=== PATIENT | female | born 1960 | race Caucasian/White ===

== ENCOUNTER → 2019-12-28 10:49 | Outpatient (CLI) | payer OTHER, SELFPAY ==
[2019-12-29 12:24] LABS: COVID19 Sendout Not Detected (Not Detect)
== END ==
PROVIDERS: PCP Obstetrics & Gynecology; Visit Provider Physician Assistant
DX: Z11.59 Encounter for screening for other viral diseases (principal)
CPT/HCPCS: 87635

== ENCOUNTER 2019-12-31 06:32 | Day surgery (SDC) | payer OTHER, SELFPAY ==
[2019-12-29 09:36] VITALS: BMI 25.0
[2019-12-31] VITALS (15 sets, daily range): BP systolic 103–135; BP diastolic 60–81; PULSE 46–95; RESP 8–18; TEMP 36.1–37.7; O2SAT 94–99; BMI 25.0
--- NOTE | 2019-12-31 | PATH_ITS ---
[facility] Accession Number: [id number] . 01 Material submitted: . uterus - UTERUS, CERVIX, BILATERAL FALLOPIAN TUBES AND OVARIES . 01 Clinical history: . OPB . 01 Diagnosis: A. Uterus, Cervix, Bilateral Fallopian Tubes and Ovaries, Hysterectomy and Bilateral Salpingo-oophorectomy: Cervix with parakeratosis, orthokeratosis, and mild keratinocytic atypia, consistent with prolapse-type changes; see comment. Negative for definite squamous dysplasia, glandular dysplasia, and invasive malignancy. Weakly proliferative endometrium with focal polyp features. Negative for atypia, hyperplasia, and malignancy. Bilateral ovaries with focal benign simple epithelial-lined cyst. Negative for borderline tumor and malignancy. Paratubal/paraovarian tissue with small benign cyst. See comment. [facility] 01/04/2020 1801 Local . 01 Comment: Within the cervix, mild keratinocytic atypia is present and is favored to represent prolapse-type changes; however, although less favored, low-grade squamous intraepithelial lesion/HPV cytopathic effect cannot be entirely excluded. Clinical correlation with gynecologic/Pap smear history is necessary to exclude this possibility. . Fallopian tube proper is not identified. These findings were communicated to Dr. Arrieta on 01/04/2020 at 2:30 p.m. . 01 Electronically signed: . Reina Watkins MD, Pathologist NPI- [id number] . 01 Gross description: . Received in formalin, labeled uterus, cervix, bilateral fallopian tubes and ovaries, and consists of a 48-gram uterus and cervix measuring 7.2 cm from superior fundus to cervix by 3.0 cm from cornu to cornu by 2.2 cm from anterior to posterior. The eldridge-pink wrinkled ectocervix measuring 4.5 x 3.0 cm and there is a 1.5 x 0.1 cm slit-like probe patent os. The serosa is eldridge-pink and smooth. The specimen is bivalved to reveal a eldridge-pink herringbone endocervical mucosa. The endometrial cavity measures 2.5 x 1.5 cm and displays a eldridge-pink hemorrhagic glistening endometrium measuring 0.1 cm in thickness. The myometrium is eldridge-pink and trabeculated measuring 1.2 cm in thickness. The detached ovaries weigh 3 grams (2.5 x 1.6 x 1.0 cm) and 3 grams (2.5 x 1.4 x 1.0 cm). The external surfaces are eldridge and cerebriform, and the smaller ovary has multiple cysts ranging from 0.1 to 1.0 cm. No papillary excrescences are identified. The remaining ovarian stroma is eldridge-pink with multiple corpora albicantia. Fallopian tubes are not identified within the specimen container or attached to the specimen. Flight Engineer Instructor sections are submitted. . A1: anterior cervix. A2: posterior cervix. A3: anterior uterus, full-thickness sections. A4: posterior uterus, full-thickness sections. A5: residential sales representative smaller cystic ovary. A6: residential sales representative larger ovary. A7: soft tissue attached to larger ovary. ([id number]) /MRV 01/01/2020 1432 [facility] . 01 Pathologist provided ICD-10: N81.3, N81.10, N81.6 . 01 CPT . 071097 Performed at: [address], [place], [place] [id number] MD Tip Valerio MD Phone: [phone]
--- NOTE | 2019-12-31 09:21 | PM.PREOP ---
Pre-operative Note COVID-19 COVID-19 status: Negative Result date/Date tested (Pos, Neg/Pending): 12/28/19 Interval Note History & Physical reviewed/Exam performed by Physician: Yes Changes to H&P: No H&P completed within 30 days and has changed as indicated here:: 12/28/19
[2019-12-31] MEDS: CEFAZOLIN 2 GM/100 ML FROZ.PIGGY IV (10:00)
[2019-12-31] MEDS: BUPIVACAINE 0.5% W/ EPI (PF) 30 ML VIAL INJ (11:15)
[2019-12-31] MEDS: LACTATED RINGERS 1,000 ML 42 ML IV (11:16)
[2019-12-31] MEDS: fentaNYL 100 MCG/2 ML INJ IV (12:24)
[2019-12-31] MEDS: ONDANSETRON 4 MG/2 ML INJ IV ×2 (12:24→18:04)
--- NOTE | 2019-12-31 12:28 | P.OP_ITS ---
Operative Date/Time/Diagnoses Date of procedure: 12/31/19 Time of procedure: 12:29 Pre-op diagnosis: Uterine prolapse Cystocele Rectocele Post-op diagnosis: same Procedure & Clinicians Procedure: Procedures Operation Date: 12/31/19 07:45 Actual Procedures Side Surgeon p Total Vaginal Hysterectomy, bilateral salpingo-oophorectomy, , anterior/posterior repair, Not Applicable Sachi Arrieta MD Indications: Uterine prolapse Cystocele Rectocele Surgeon: Sachi Arrieta Group Exercise Class Instructor: Maria Isabel Cobos Anesthesia Type: Spinal (With sedation) Operative Notes Closure Type: primary Specimen(s): left tube & ovary, right tube & ovary and uterus Applied: catheter (To continuous drainage) Estimated blood loss (mL): 25 Blood products transfused: none Procedure in detail: The patient was taken to the operating room where she was placed in the dorsal supine position. After adequate general endotracheal anesthesia was achieved, she was placed in the dorsal lithotomy position, and prepped and draped in the usual sterile fashion. a weighted speculum was placed into the vagina. The cervix was grasped with a 4 tooth tenaculum. 10 mL of quarter percent Marcaine with epinephrine were injected circumferentially around the cervix. The cervix was circumscribed. The bladder and rectum were dissected off the lower uterine segment and cervix with an open moistened Ray- Giorgio. The peritoneum was entered sharply with the Metzenbaum scissors anteriorly and a [place] placed. The peritoneum was entered posteriorly with the Metzenbaum scissors and the long weighted speculum was placed into the posterior cul-de-sac. The uterosacral cardinal ligament complexes were clamped, transected, and suture ligated with 0 Vicryl. These were attached to hemostat. The uterine arteries were clamped, transected, and suture ligated with 0 Vicryl. The uterus was handed off for specimen with the tubes and ovaries. The peritoneum was closed with a pursestring suture with 2-0 Vicryl. The vaginal cuff was closed with 0 Vicryl with a series of simple interrupted sutures. The tagged sutures were cut. 2 Allis clamps were placed at the apex of the cystocele. 6 mL of half percent Marcaine with epinephrine were injected and an incision was made with a #10 blade between the 2 Allis clamps. Wide Allis clamps were placed on the midline of the cystocele approximately 6. The mucosa was undermined using the Metzenbaum scissors and the mucosa incised in the midline moving the wide Allis clamps to the edges of the mucosa. The mucosa was dissected off the underlying fascia using an open moistened Ray-Giorgio and a #10 blade. The fascia was reapproximated with 0 Vicryl with a series of horizontal mattress sutures. The excess vaginal mucosa was excised. The mucosa was closed using simple interrupted sutures with 2-0 Vicryl including the underlying fascia to close the space. The weighted speculum was removed from the vagina. Allis clamps were placed at the mucocutaneous junction at the introitus. 6 mL of half percent Marcaine with epinephrine were injected. An incision was made with a #10 blade between the 2 Allis clamps, and a triangular piece of skin and underlying subcutaneous tissue was removed. Allis clamps were placed in the mid line of the rectocele. 10 mL of half percent Marcaine with epinephrine were injected submucosally. The mucosa was undermined using the Metzenbaum scissors and the mucosa incised in the midline, moving the wide Allis clamps to the mucosal edges. The underlying fascia was dissected off of th mucosa using an open moistened Ray-Giorgio and a #10 blade. The fascia was reapproximated using 0 Vicryl with a series of horizontal mattress sutures. The excess vaginal mucosa was excised. The mucosa was closed using a series of simple interrupted sutures with 2-0 Vicryl including the underlying fascia to close the space. On the perineum 0 Vicryl was used to reapproximate the levator muscle. The subcutaneous layer was closed with 2-0 Vicryl. The skin was closed with 3-0 chromic in a subcuticular fashion. Hemostasis was achieved. A Betadine moistened vaginal pack was placed into the vagina. A rectal exam was done and there were no sutures palpable in the rectum. The urine was clear. Sponge, lap, and instrument counts were correct x-2. The patient tolerated the procedure well, was taken to PACU in stable condition. Complications: none Post-operative Condition: stable Disposition: PACU Plan for aftercare: To acute care after recovery
[2019-12-31] MEDS: KETOROLAC 30 MG/ML VIAL IV ×3 (12:33→23:42)
--- NOTE | 2019-12-31 12:53 | SUR.PHASEI ---
Patient's' vitals stable, but has a heart rate in mid 40's to low 60's. Notified Dr. Cruz who stated that patient may transfer to acute care. Patient assymptomatic, resting peacefully in bed and conversing well.
[2019-12-31] MEDS: HYDROMORPHONE 1 MG INJ IV ×2 (13:41→20:46)
[2019-12-31] MEDS: LACTATED RINGERS 1,000 ML 100 ML IV ×2 (13:44→18:45)
--- NOTE | 2019-12-31 13:47 | PC.NURSE ---
Addendum entered by Zakia Mendoza R.N. 12/31/19 14:31: Patient sleeping on and off, reports cramping has improved since medicated with IVP Dilaudid. Original Note: Patient alert, oriented rates abdominal pain 6/10 and cramping. Denies nausea. Given 1mg Dilaudid IVP. Patient oriented to room and call light.
[2019-12-31] MEDS: NICOTINE 14 PATCH 14 MG TOP (18:35)
[2019-12-31] MEDS: GABAPENTIN 600 MG TABLET PO (20:34)
[2019-12-31] MEDS: DOCUSATE 250 MG CAPSULE PO (20:34)
[2019-12-31] MEDS: METFORMIN HCL 500 MG TABLET PO (20:34)
[2019-12-31] MEDS: PHENAZOPYRIDINE 100 MG TABLET 200 MG PO (20:35)
[2020-01-01 04:42] VITALS: BP 125/82; PULSE 80; RESP 18; TEMP 37.2; O2SAT 96
[2020-01-01] MEDS: LACTATED RINGERS 1,000 ML 100 ML IV (05:07)
[2020-01-01 05:34] LABS: Add Manual Diff / Slide Review NO; Basophils Absolute Auto 0 /uL (0-100); Basophils Percent Auto 0.4 % (0-2); Eosinophils Absolute Auto 100 /uL (0-450); Eosinophils Percent Auto 1.2 % (2-4); Hematocrit 32.2 % (36-46); Hemoglobin 10.8 g/dL (12.0-16.0); Lymphocytes Absolute Auto 1600 /uL (1100-4500); Lymphocytes Percent Auto 16.3 % (25-40); Mean Corpuscular HGB Conc 33.6 % (30-36); Mean Corpuscular Hemoglobin 29.2 PG (26-34); Mean Corpuscular Volume 86.9 fL (80-100); Monocytes Absolute Auto 500 /uL (0-900); Monocytes Percent Auto 5.6 % (3-14); Neutrophils Absolute Auto 7500 /uL (1500-7000); Neutrophils Percent Auto 76.5 % (50-75); Platelet Count 164 X10^3/uL (150-400); Red Cell Distribution Width 13.6 % (11.6-14.8); White Blood Cell Count 9.8 X10^3/uL (4.5-11.0)
[2020-01-01] MEDS: KETOROLAC 30 MG/ML VIAL IV (05:37)
[2020-01-01] MEDS: OXYCODONE/ACETAMINOPHEN 5/325 TABLET 1 TAB PO ×2 (05:38→09:37)
--- NOTE | 2020-01-01 06:32 | PC.NURSE ---
0600 Vaginal packing pulled out & cunningham catheter discontinued. Tolerated procedure, medicated with 1 tab. Percocet & scheduled 30 mg. of Toradol IVP. Cunningham drained 1200cc of dark orange yellow urine. Did not sleep well last night, report I slept all day yesterday. Will continue POC & monitor.
--- NOTE | 2020-01-01 07:26 | PC.NURSE ---
Voided 400 cc & checked PVR 91 cc noted, reported to day RN.
[2020-01-01 08:00] VITALS: BP 123/81; PULSE 81; RESP 18; TEMP 36.9; O2SAT 95
[2020-01-01] MEDS: PHENAZOPYRIDINE 100 MG TABLET 200 MG PO ×2 (08:29→09:37)
[2020-01-01] MEDS: GABAPENTIN 600 MG TABLET PO (08:30)
[2020-01-01] MEDS: METFORMIN HCL 500 MG TABLET PO (08:30)
[2020-01-01] MEDS: DOCUSATE 250 MG CAPSULE PO (08:30)
--- NOTE | 2020-01-01 10:00 | PC.NURSE ---
Day SHift- Spoke with Dr. Arrieta in person and via phone. Pt may take 600mg Ibuprofen and stagger Tylenol or Percocet at the 3 hour verito inbetween Tylenol doses. Pt aware. Also pt to stop Aspirin for 1 week and stop Estraidol. Pt aware to not place anything vaginally. Medication list reviewed. Instructed pt she may also cut the Percocet in half if needed and to keep track of her pain medications. Pt aware of follow up appointment, states has all belongings. Extra mesh pants and pads given. Pt has had small amount of drainage on jacqui pad this morning. Voided 3 times, last void, no blood visualized in toilet. Discharge instructions reviewed with pt and her Cristhian at bedside. No further voiced concerns. Pt left unit at 1000 in no distress via wheelchair with NATURAL GAS TECHNICIAN assist. Cristhian present to drive pt home and aware of prescriptions sent electronically.
--- NOTE | 2020-01-01 12:40 | CM.DANOTE ---
Discharge Planning/Care Management DCP: asssessment: case received and discussed in Team Rounds. Pt is a 59 year old female who admitted yesterday for a planned gynecological procedure: surgeon: Dr. Arrieta. Payer: [employer]inc[employer]. RN coordinator Zakia noted in Rounds that pt had been given ok for d/c early this morning and she left for home with her spouse just as Rounds was starting. Clinic followup planned. CM Discharge Assessment Start: 01/01/20 12:39 Freq: Status: Active Protocol: Document 01/01/20 12:40 ITV (Rec: 01/01/20 12:40 ITV [id number]) Discharge Planning Assessment Advance Directives? No History Provided By Medical Record Prior Living Arrangements House Household Members spouse Review Status In Process Pre-Anesthesia Assessment Start: 12/29/19 09:36 Freq: Status: Complete Protocol: Document 12/29/19 09:36 CAB (Rec: 12/29/19 09:48 CAB [id number]) Pre-Anesthesia Assessment Patient Information Reviewed Via Chart Review Diagnostic Results EKG Comment Outside EKG scanned to record, COVID screen @ 12/28/19 Pending Primary Care Provider rebecca Specialist Seen Garden Center Manager Primary Language Czech Extra Gang Supervisor Required No Height 165.1 cm Weight 68.039 kg Body Mass Index (BMI) 25.0 Barriers to Learning None Other Aids No Anesthesia Review Requested No Steam Train Driver No Smoking Status Current every day smoker History of Falling (Recent or History of No ) Patient is completely paralyzed or No completely immobile Mental Status Oriented to own ability Hx Sleep Apnea No Currently Taking a Beta Kee No Cardiac Testing No Hx Pacemaker/ICD No Pacemaker Rep Required? No Bladder Pattern Incontinent, Stress,Urgency Urinary Catheter Present No Hx Urinary Self Catheterization No Diabetes Yes Patient No Lactating No Have you had any close contact with Unknown someone diagnosed with COVID-19? Marital Status Lives With spouse Patient Discharge Plan Description Return Home
--- NOTE | 2020-01-01 12:53 | P.DS_ITS ---
History of Present Illness History of Present Illness Date Patient Seen: 01/01/20 Time Patient Seen: 07:45 Chief complaint: OPB Narrative: Patient is a 59-year-old 3 para 2 who was admitted on December 31, 2019 for a scheduled LAVH/BSO/anterior and posterior repair. She underwent these procedures without complication. On the morning of January 01, 2020 her Quigley catheter was removed as well as vaginal packing. She was able to void 400 cc with a 90 cc residual the 1st time. She voided 250 cc of 2nd time with a less than 50 cc residual. Pain is well controlled. No significant vaginal bleeding. Patient is ambulating. She is tolerating a diet. Discharge Providers Provider Discharge Date: 01/01/20 Primary care physician: Sachi Arrieta MD Consults: 12/31/19 08:19 Consult to Respiratory Therapy Evaluate & Treat Comment: Physician Instructions: Evaluate and treat Discharge provider: Sachi Arrieta MD Summary Hospital Course Discharge Diagnosis: Uterine prolapse Cystocele Rectocele Status post LAVH/BSO/anterior and posterior repair Hospital Course: Patient was admitted on December 31, 2019 for a scheduled LAVH/BSO/anterior and posterior repair. She underwent this procedure without complication. Her Quilgey catheter was removed on postop day # 1 as well as the vaginal packing. She was able to void without any significant postvoid resid uals. She is tolerating a diet. Her pain is well controlled. She is ambulating without assistance. Status at Discharge Cognitive/behavioral status at discharge: oriented Functional status at discharge: independent ambulation Overall status at discharge: patient is progressing back to baseline Time Spent with Patient Time spent: Less than 30 minutes Time spent discussing smoking cessation with patient: 3 to 10 minutes Exam Vital Signs (past 8 hours): - 01/01/20 08:00 Temperature 98.5 F Pulse Rate 81 Respiratory Rate 18 Blood Pressure 123/81 Pulse Oximetry 95 Oxygen Delivery Method Room Air Oxygen Flow Rate 0 Narrative Exam Narrative: Generally: Patient is sitting up in bed, no acute distress Lungs: Clear to auscultation bilaterally Cardiovascular: Regular rate and rhythm Abdomen: Soft and flat. Good bowel sounds Perineum: Small amount of old blood Extremities: Negative Homans, no edema Objective Labs Result Diagrams: 01/01/20 05:13 Labs: Laboratory Results - last 24 hr 01/01/20 05:13 WBC 9.8 RBC 3.70 L Hgb 10.8 L Hct 32.2 L MCV 86.9 MCH 29.2 MCHC 33.6 RDW 13.6 Plt Count 164 Neut % (Auto) 76.5 H Lymph % (Auto) 16.3 L [place] % (Auto) 5.6 Eos % (Auto) 1.2 L Baso % (Auto) 0.4 Neut # (Auto) 7500 H Lymph # (Auto) 1600 [place] # (Auto) 500 Eos # (Auto) 100 Baso # (Auto) 0 Discharge Assessment & Plan Assessment and Plan Assessment: Assessment: 59-year-old 3 para 2 postop day # 1 status post LAVH/BSO/anterior and posterior repair Patient doing very well Voiding without significant postvoid residuals Plan of Treatment: Plan: Discharge to home Follow-up in 2 weeks for tele health visit Prescription for Colace and Percocet sent in Patient to call with fever, chills, or bleeding vaginally more than spotting to light Discharge Plan Discharge Plan Patient Disposition: Home Discharge comment: Call with fever, chills, or bleeding vaginally more than spotting to light Ibuprofen 600 mg every 6 hours Tylenol 650 mg every 6 hours or Percocet, both contain acetaminophen so do not want to use them together Stool softeners twice a day Discharge Med Rec/Prescriptions Prescriptions: New docusate sodium [Colace] 100 mg capsule 100 mg PO BID Qty: 30 RF: 2 oxycodone-acetaminophen [Percocet] 5-325 mg tablet 1 tab PO Q4-6H PRN (Reason: pain) Qty: 20 RF: 0 Continued metformin 500 mg/5 mL solution 500 mg PO BID RF: 0 gabapentin 600 mg tablet 600 mg PO TID RF: 0 simvastatin 40 mg tablet 40 mg PO DAILY RF: 0 zolpidem 10 mg tablet 10 mg PO BEDTIME PRN (Reason: insomnia) Qty: 10 RF: 0 Multivitamin 50 Plus Tablet 1 tab PO DAILY RF: 0 cholecalciferol (vitamin D3) [Vitamin D3] 125 mcg (5,000 unit) Tablet 125 mcg PO DAILY RF: 0 krill oil 500 mg Capsule 1 mg PO DAILY RF: 0 Glucosamine Chondroitin 550-30-1 mg Capsule 1 cap PO BID RF: 0 Discontinued estradiol [Estrace] 0.01 % (0.1 mg/gram) cream 0.5 gram VAG DAILY Qty: 42.5 RF: 0 aspirin 325 mg tablet 325 mg PO DAILY RF: 0 Follow up/Referrals: Sachi Arrieta MD [Primary Care Provider] - 01/14/20 4:45 pm (January 13 at 4:45 PM Telehealth appointment February 10 3:00 PM In person appointment in Office) Discharge Orders: Discharge (Order); Ordered 01/01/20 Ordered By: Sachi Arrieta Provider Discharge Instructions Diet: Regular Activity: Walking only. Nothing in vagina. No heavy lifting Catheter: 3-way Quigley Skin/Wound/Dressing Care Report to your healthcare provider any signs of infection, such as:: chills, fever, increased pain and unusual drainage Visit Report/Discharge Packet Instructions: DI for Cystocele and Rectocele Repair, DI for Postoperative Pain, DI for Prescription Opioid Use, Oxycodone, DI for Vaginal Hysterectomy Stand Alone Forms: Surgery Discharge Visit Report Forms: Stroke Signs & Symptoms Discharge Data Primary Care Provider: Sachi Arrieta Attending Provider: Sachi Arrieta Discharges patient from system. Discharge Date/Time: 01/01/20 10:00
== END 2020-01-01 10:00 | disposition home or self-care (01) ==
LOC: OR 06:34 → AC 06:36
PROVIDERS: PCP Obstetrics & Gynecology; Referring Provider Obstetrics & Gynecology; Visit Provider Obstetrics & Gynecology
PROC: (CPT 58260; principal; 2019-12-31 07:45)
DX: N81.3 Complete uterovaginal prolapse (principal); N81.6 Rectocele; F17.210 Nicotine dependence, cigarettes, uncomplicated; E11.9 Type 2 diabetes mellitus without complications; Z79.84 Long term (current) use of oral hypoglycemic drugs
CPT/HCPCS: 58262; 57260; 36415; 82962; 85025; 99406; J0690; J1170; J1885; J2250; J2405; J2704; J3010